=== PATIENT | female | born 1975 | race Caucasian/White ===

== ENCOUNTER 2017-03-30 01:34 | Emergency (ER) | payer OTHER | END 2017-03-30 03:58 | disposition left against medical advice (07) | LOC: ER1 01:34 | DX: Z53.21 Procedure and treatment not carried out due to patient leaving prior to being seen by health care provider (principal) | CPT/HCPCS: 93005 ==

== ENCOUNTER 2022-04-14 23:01 | Emergency (ER) | payer OTHER ==
[~2022-04-14] VITALS: Ht 167.6 cm; Wt 79.4 kg
[2022-04-15 00:27] LABS: HEMOGLOBIN 12.8 gm/dl (12.3-15.3); RED BLOOD COUNT 4.31 M/UL (4.00-5.10)
[2022-04-15 00:28] LABS: WHITE BLOOD COUNT 6.8 K/UL (4.5-11.0)
[2022-04-15 00:48] LABS: BUN/CREATININE RATIO 21 (0-10)
== END 2022-04-15 04:35 | disposition left against medical advice (07) ==
LOC: ER1 23:01 → CDU 04-15 02:25
PROVIDERS: Physician Assistant
DX: G45.9 Transient cerebral ischemic attack, unspecified (principal); I10 Essential (primary) hypertension; F17.210 Nicotine dependence, cigarettes, uncomplicated
CPT/HCPCS: 70450; 71045; 80053; 80061; 82550; 82553; 83880; 84484; 85025; 85610; 85730; 93005; 99283

== ENCOUNTER → 2022-04-14 | Outpatient (CLI) | payer OTHER ==
[2022-04-14 13:27] LABS: HEMOGLOBIN 12.9 gm/dl (12.3-15.3); RED BLOOD COUNT 4.34 M/UL (4.00-5.10); WHITE BLOOD COUNT 4.5 K/UL (4.5-11.0)
[2022-04-14 13:39] LABS: BUN/CREATININE RATIO 23 (0-10)
== END ==
LOC: LAB 12:32
PROVIDERS: Family Medicine
DX: M94.0 Chondrocostal junction syndrome [Tietze] (principal); R63.5 Abnormal weight gain
CPT/HCPCS: 36415; 71046; 80053; 84443; 85025; 93005